=== PATIENT | female | born 1990 | race Caucasian/White ===

== ENCOUNTER 2017-06-13 01:22 | Emergency (ER) | payer SELFPAY ==
[~2017-06-13] VITALS: Ht 160 cm; Wt 73.0 kg
[2017-06-13 01:29] VITALS: Ht 160 cm; Wt 73.0 kg
[2017-06-13 09:11] VITALS: BP 110/68
== END 2017-06-13 09:11 | disposition home or self-care (01) ==
LOC: ED 01:22
DX: L02.31 Cutaneous abscess of buttock (principal)
CPT/HCPCS: J2001

== ENCOUNTER 2017-06-15 10:55 | Emergency (ER) | payer SELFPAY ==
[~2017-06-15] VITALS: Ht 160 cm; Wt 72.6 kg
[2017-06-15 11:02] VITALS: Ht 160 cm; Wt 72.6 kg
[2017-06-15 11:57] VITALS: BP 122/67
== END 2017-06-15 11:57 | disposition home or self-care (01) ==
LOC: ED 10:55
DX: Z48.01 Encounter for change or removal of surgical wound dressing (principal)

== ENCOUNTER 2017-06-17 09:49 | Emergency (ER) | payer SELFPAY ==
[~2017-06-17] VITALS: Ht 160 cm; Wt 72.6 kg
[2017-06-17 09:54] VITALS: Ht 160 cm; Wt 72.6 kg
[2017-06-17 10:27] VITALS: BP 126/83
== END 2017-06-17 10:27 | disposition home or self-care (01) ==
LOC: ED 09:49
DX: Z48.01 Encounter for change or removal of surgical wound dressing (principal)

== ENCOUNTER 2018-10-08 21:47 | Emergency (ER) | payer MEDICAID ==
[~2018-10-08] VITALS: Ht 160 cm; Wt 71.2 kg
[2018-10-08 21:55] VITALS: Ht 160 cm; Wt 71.2 kg
[2018-10-08 22:36] LABS: BASOPHIL % 0.4 % (0-2); PLATELET COUNT 315 x10^3mcL (130-400); RED CELL DISTRIBUTION WIDTH 13.3 % (11.5-14.5)
[2018-10-08 22:41] LABS: CALCIUM 8.9 mg/dL (8.5-10.1); CARBON DIOXIDE 21.2 mmol/L (21-32); CHLORIDE SERUM 105 mmol/L (98-107); CREATININE SERUM 0.7 mg/dL (0.6-1.0); GFR1 > 60 mL/min; GLUCOSE SERUM 134 mg/dL (74-106); POTASSIUM SERUM 3.5 mmol/L (3.5-5.1); SODIUM SERUM 140 mmol/L (136-145)
[2018-10-09 00:40] VITALS: BP 114/69
== END 2018-10-09 00:40 | disposition home or self-care (01) ==
LOC: ED 21:47
PROVIDERS: Specialist
DX: O03.9 Complete or unspecified spontaneous abortion without complication (principal); O99.019 Anemia complicating pregnancy, unspecified trimester
CPT/HCPCS: 36415; J7030; Q0092